=== PATIENT | female | born 1990 | race Caucasian/White ===

== ENCOUNTER 2018-12-19 11:52 | Emergency (ER) | payer OTHER ==
[~2018-12-19] VITALS: Ht 172.7 cm; Wt 74.8 kg
[~2018-12-19 11:52] MED LIST: CELEXA20 MG; NOHOMEMEDICATIONS; ZOFRAN ODT4 M1 PO
[2018-12-19] MEDS ORDERED: VENLAFAXINE H37.5 M2 PO (12:18)
[2018-12-19 12:24] LABS: HEMATOCRIT 41.6 % (37.0-47.0); HEMOGLOBIN 14.4 gm/dL (12.0-15.0); MCH 31.8 pg (26.0-34.0); MCHC 34.7 g/dL (28.0-37.0); MCV 91.9 fL (80.0-100.0); MPV 8.7 fl. (7.2-11.1); RBC 4.53 mil/uL (4.20-5.00); RDW-CV 12.1 % (10.5-14.5); WBC 5.3 thou/uL (4.0-11.0)
[2018-12-19 12:32] LABS: CALCIUM 9.3 mg/dL (8.5-10.1); POTASSIUM 3.5 mmol/L (3.5-5.1)
[2018-12-19 12:37] LABS: ALBUMIN 4.1 g/dL (3.4-5.0); TOTAL BILIRUBIN 0.3 mg/dL (<0.1-1.0); TOTAL PROTEIN 8.3 g/dL (6.4-8.2)
[2018-12-19 12:57] LABS: ACETAMINOPHEN < 10 ug/mL (10-30); ALCOHOL < 2 mg/dL (<10); SALICYLATE < 2.8 mg/dL (2.8-20.0)
[2018-12-19 15:02] LABS: URINE BILIRUBIN NEGATIVE (Negative); URINE BLOOD NEGATIVE (Negative); URINE CLARITY CLEAR; URINE COLOR YELLOW; URINE GLUCOSE-RANDOM NEGATIVE (Negative); URINE KETONES NEGATIVE (Negative); URINE LEUKOCYTES NEGATIVE (Negative); URINE NITRITE NEGATIVE (Negative); URINE PROTEIN NEGATIVE (Negative); URINE SPECIFIC GRAVITY 1.015 (1.005-1.030); URINE UROBILINOGEN 0.2 E.U./dl (0.2-1.0)
[2018-12-19 15:09] LABS: AMP/METHAMP Negative (Negative); BARBITURATES Negative (Negative); BENZODIAZEPINES Negative (Negative); COCAINE Negative (Negative); METHADONE Negative (Negative); OPIATES Negative (Negative); PCP Negative (Negative); THC Negative (Negative)
[2018-12-20 20:45] VITALS: BP 117/60
== END 2018-12-20 20:45 | disposition short-term general hospital (02) ==
LOC: M.ERS 11:52
PROVIDERS: Personal Emergency Response Attendant
DX: R45.851 Suicidal ideations (principal)